=== PATIENT | female | born 1975 | race Caucasian/White ===

== ENCOUNTER 2021-10-15 12:40 | Emergency (ER) | payer MEDICAID, OTHER ==
[~2021-10-15] VITALS: Ht 175.3 cm; Wt 105.8 kg
[~2021-10-15 12:40] MED LIST: FLOOS OT; PSEU120T55 PO
[2021-10-15 12:44] VITALS: BP 122/74
[2021-10-15] MEDS ORDERED: CYCL-1 PO (14:13)
[2021-10-15] MEDS ORDERED: IBUP-1986 PO (14:13)
[2021-10-15] MEDS ORDERED: cyclobenzaprine 10mg tablet PO ONE (14:20)
[2021-10-15] MEDS ORDERED: HYDROcodone/acetaminophen 5mg/325mg tablet PO ONE (14:20)
== END 2021-10-15 14:32 | disposition home or self-care (01) ==
LOC: ER 12:41
DX: M25.512 Pain in left shoulder (principal); M54.6 Pain in thoracic spine; M54.2 Cervicalgia; R07.89 Other chest pain; G43.909 Migraine, unspecified, not intractable, without status migrainosus; Z56.0 Unemployment, unspecified; Z79.2 Long term (current) use of antibiotics; Z79.899 Other long term (current) drug therapy; V89.2XXA Person injured in unspecified motor-vehicle accident, traffic, initial encounter; Y93.89 Activity, other specified; Y92.89 Other specified places as the place of occurrence of the external cause; Y99.8 Other external cause status
CPT/HCPCS: 99283

== ENCOUNTER 2021-10-18 12:21 | Emergency (ER) | payer OTHER ==
[~2021-10-18] VITALS: Ht 175.3 cm; Wt 105.9 kg
[~2021-10-18 12:21] MED LIST changes: +CYCL-1 PO; +IBUP-1986 PO
[2021-10-18 12:37] VITALS: BP 131/71
== END 2021-10-18 15:35 | disposition home or self-care (01) ==
LOC: ER 12:23
DX: S00.83XA Contusion of other part of head, initial encounter (principal); S20.01XA Contusion of right breast, initial encounter; M25.511 Pain in right shoulder; G43.909 Migraine, unspecified, not intractable, without status migrainosus; M54.6 Pain in thoracic spine; Z56.0 Unemployment, unspecified; Z79.2 Long term (current) use of antibiotics; Z79.899 Other long term (current) drug therapy; V89.2XXA Person injured in unspecified motor-vehicle accident, traffic, initial encounter; Y93.89 Activity, other specified; Y92.89 Other specified places as the place of occurrence of the external cause; Y99.8 Other external cause status
CPT/HCPCS: 71046; 99283

== ENCOUNTER 2023-11-23 15:29 | Outpatient (CLI) | payer MEDICAID | END 2023-11-23 23:59 | disposition home or self-care (01) | LOC: MRI 15:29 | PROVIDERS: ATTEND Physician Assistant Surgical | DX: M25.562 Pain in left knee (principal) | CPT/HCPCS: 73721 ==

== ENCOUNTER 2025-02-16 15:47 | Emergency (ER) | payer MEDICAID | END 2025-02-16 16:00 | disposition left against medical advice (07) | LOC: ER 15:47 | DX: R10.9 Unspecified abdominal pain (principal); Z53.21 Procedure and treatment not carried out due to patient leaving prior to being seen by health care provider ==

== ENCOUNTER 2025-02-16 16:43 | Emergency (ER) | payer MEDICAID ==
[~2025-02-16] VITALS: Ht 175.3 cm; Wt 109.5 kg
[2025-02-16 17:58] LABS: MEAN PLATELET VOLUME 6.9 FL (7.4-10.4); RED CELL DISTRIBUTION WIDTH 13.5 % (11.5-14.5)
[2025-02-16 18:04] LABS: LEUKOCYTE ESTERASE ,URINE NEGATIVE (Neg); NITRITES, URINE NEGATIVE (Neg); OCCULT BLOOD,URINE NEGATIVE (Neg)
[2025-02-16 18:06] LABS: UA COLLECTION TYPE CLN CATCH MIDSTREAM
[2025-02-16 18:15] LABS: CREATININE 0.72 MG/DL (0.40-0.90); TOTAL CARBON DIOXIDE 25.7 MMOL/L (24-32); eCRCL 101 ML/MIN; eGFR 87 ML/MIN
--- NOTE | 2025-02-16 18:29 | RADIOLOGY REPORT ---
Technique: Real-time ultrasound images through the pelvis using a transabdominal transducer. For bett er evaluation of the ovaries and endometrial stripe, an endovaginal transducer was used. Indication: ABDOMINAL PAIN Comparison: None Findings: The uterus is not identified consistent with history of hysterectomy. Right ovary measures 4.5 x 2.7 x 3.4 cm. Normal flow on color doppler images. Right ovarian follicle / cyst measuring 1.1 cm. Left ovary measures 3.3 x 2.1 x 1.8 cm. Normal flow on color doppler images. No focal masses are reginaldo ntified. There is no significant free fluid in the pelvis. Impression: Uterus nonvisualized consistent with history of hysterectomy.
--- NOTE | 2025-02-16 19:44 | Physician Documentation ---
History of Present Illness Chief Complaint: Abdominal Pain Stated Complaint: "I AM IN A LOT OF PAIN" Time Seen by MD: 17:26 Primary Medical Doctor: KAMAR MEDINA Patient is seen today with complaints of left lower quadrant abdominal pain that started a couple of days ago was progressively worsened. Patient denies any significant aggravating or relieving factors however she states it does seem to hurt last when she stands up. Patient denies any fever or chills or nausea, vomiting, diarrhea or chest pain or shortness of breath. She states she did have a partial hysterectomy two years ago where they removed her uterus but she remains with both ovaries. She denies any history of diverticulitis or significant ovarian cysts. She has no other concern or complaint at this time. Medication Reconciliation Allergies: Coded Allergies: No Known Allergies (Unverified , 02/16/25) Scheduled Cyclobenzaprine* (Cyclobenzaprine*), 1 TAB PO Q8H Ibuprofen (Ibuprofen), 1 TAB PO Q8H Ofloxacin Otic* (Floxin Otic Drops*), 5 DRP OT QID Pseudoephedrine Hcl (Sudafed 12-Hour), 120 MG PO BID Past Medical History Past Medical History: Migraine Past Surgical History: no surgical history Drug Use: none Lives with: Family Lives In: Home Occupation: unemployed, student Review of Systems Constitutional: Denies: chills, fever, weakness Eyes: Denies: pain, blurred vision ENT: Denies: ear pain, nose pain, throat pain, mouth pain Respiratory: Denies: cough, shortness of breath Cardiovascular: Denies: chest pain, palpitations Gastrointestinal: Denies: abdominal pain, nausea, vomiting Genitourinary: Denies: burning, dysuria Female Genitalia: Denies: vaginal discharge, pelvic pain Neurological: Denies: headache, dizziness Musculoskeletal: Denies: pain, swelling Integumentary: Denies: rash, lesions Allergic/Immunologic: Denies: hives, itching Hematologic/Lymphatic: Denies: no symptoms reported Psychiatric: Denies: depression, anxiety Physical Exam Vital Signs: Temperature: 98.7, Source: Temporal, Heart Rate: 64, Respiratory Rate: 16, BP: 152/91, Pulse Oximetry: 100, Weight: 109.550 Oxygen Flow Rate: 0 Physical Exam General: Awake and Alert, no acute distress. HEENT: Conjunctiva pink, Sclera clear, Mucus Membranes moist. Neck: Supple without masses and tenderness. Resp: Unlabored. Lungs clear to auscultation bilaterally. Heart: Regular Rate and rhythm, normal S1 and S2 without murmur, rub or gallop. Abdomen: Patient on exam has significant tenderness to palpation of the left lower quadrant without rebound and without guarding. Abdomen is soft, no ndistended, normoactive bowel sounds, no masses. Extremities: No cyanosis,clubbing or edema. Skin: Warm and Dry. Progress Results/Orders Results/Orders Orders - DIEGO ALTAMIRANO R PAC Ultrasound Pelvis W/Orwo Dplx (02/16/25 16:51) Toradol Iv (02/16/25 19:40) Saline Lock (02/16/25 19:40) Ct Abdomen Pelvis (02/16/25 19:40) Completed Orders - DIEGO ALTAMIRANO R PAC Urinalysis, Cult If Indicated (02/16/25 16:51) Cbc/Diff (02/16/25 16:51) Lipase (02/16/25 16:51) CMP (02/16/25 16:51) Ultrasound Pelvis W/Orwo Dplx (02/16/25 16:51) Procalcitonin (02/16/25 16:51) Lactic,2hr (02/16/25 16:51) Vital Signs 02/16/25 02/16/25 16:47 19:28 Temp 97.9 98.7 Pulse 75 64 Resp 18 16 B/P (MAP) 162/94 152/91 (111) Pulse Ox 98 100 O2 Flow Rate 0 0 Laboratory Tests Test 02/16/25 16:51 02/16/25 17:02 White Blood Count 7.9 Red Blood Count 4.65 Hemoglobin 14.3 Hematocrit 41.4 Mean Corpuscular Volume 89.2 Mean Corpuscular Hemoglobin 30.7 Mean Corpuscular Hemoglobin Concent 34.4 Red Cell Distribution Width 13.5 Platelet Count 394 Mean Platelet Volume 6.9 L Neutrophils (%) (Auto) 77.8 H Lymphocytes (%) (Auto) 16.7 L Monocytes (%) (Auto) 4.5 Eosinophils (%) (Auto) 0.5 Basophils (%) (Auto) 0.5 Neutrophils # (Auto) 6.2 Lymphocytes # (Auto) 1.3 Monocytes # (Auto) 0.4 Eosinophils # (Auto) 0.0 Basophils # (Auto) 0.0 CBC Comment Sodium Level 139 Potassium Level 3.8 Chloride Level 100 Carbon Dioxide Level 25.7 Anion Gap 13 Blood Urea Nitrogen 11 Creatinine 0.72 Estimated GFR/1.73 m2 87 BUN/Creatinine Ratio 15.3 Glucose Level 115 H Lactic Acid Level 0.9 Calcium Level 9.2 Total Bilirubin 0.6 Aspartate Amino Transf (AST/SGOT) 17 Alanine Aminotransferase (ALT/SGPT) 35 Alkaline Phosphatase 62 Total Protein 8.4 H Albumin 4.2 Globulin 4.2 Albumin/Globulin Ratio 1.0 L Lipase 28 Procalcitonin < 0.05 Chemistry Comments Urine Specimen Description Cln catch midstream Urine Color Yellow Urine Clarity Clear Urine pH 6.0 Urine Specific Warren 1.025 Urine Protein Negative Urine Glucose (UA) Negative Urine Ketones Trace H Urine Occult Blood Negative Urine Nitrite Negative Urine Bilirubin Negative Urine Urobilinogen 0.2 Urine Leukocyte Esterase Negative Urine Culture Indicated Not ind Volume Urine Centrifuged 10 ml Urine Comment EKG/XRAY/CT/US/VASC/MRI CT : Impression CAT SCAN Patient: TANIA HAGAN Medical Record: [id number] [facility] 1975, Age: 49 Sex: Female Location: ER Patient Status: REG ER Service Date/Time: 02/16/251939 Ordering Physician: DIEGO ALTAMIRANO PAC Exam: CT ABDOMEN PELVIS Exam: CT CT ABDOMEN PELVIS W/ IV CONTRAST History: ABD PAIN Comparison Study: None TECHNIQUE: Multidetector CT of the abdomen was performed from lung bases to pubic symphysis. Imaging was performed without IV contrast. Axial, coronal and sagittal multiplanar reformats were obtained from the axial data set by the technologist. Radiation Dose Information: Dose-length product is 1722 mGy*cm FINDINGS: Limited sections of the lung bases demonstrate no focal pulmonary mass. The liver, spleen, pancreas, and both adrenal glands demonstrate no acute findings. Minimal hepatic steatosis. Hepatomegaly to 22 cm. The gallbladder is unremarkable. Small hiatal hernia ; otherwise stomach is unremarkable. The small bowel loops are not dilated. The appendix is normal. No colonic obstruction. Colonic diverticulosis without acute diverticulitis. Minimal colonic wall thickening may reflect colitis. Bilateral kidneys contains multiple small subcentimeter cysts. No hydronephrosis. Urinary bladder wall thickening which may reflect cystitis vs partial nondistention; consider correlation with urinarlysis. No significant lymphadenopathy. Scattered prominent mesenteric lymph nodes with diffuse inflammation. No free air or free fluid. The aorta and IVC demonstrate no acute findings. Visualized osseous structures demonstrate no acute abnormality. IMPRESSION: 1. Minimal colonic wall thickening may reflect colitis. No bowel obstruction. 2. Colonic diverticulosis without acute diverticulitis. 3. Urinary bladder wall thickening which may reflect cystitis vs partial nondistention; consider correlation with urinarlysis. 4. Scattered prominent mesenteric lymph nodes with diffuse inflammation which may reflect panniculitis. Electronically Signed by:BARBI GOMEZ MD Date & Time: 02/16/252132 Dictated by: BARBI GOMEZ MD Dictation date and time: 02/16/252132 Primary Care Provider: NO PRIMARY CARE PROVIDER cc: DIEGO ALTAMIRANO PAC ~ Ultrasound : Impression ULTRASOUND Patient: TANIA HAGAN Medical Record: [id number] [facility] 1975, Age: 49 Sex: Female Location: ER Patient Status: [facility] ER Service Date/Time: 02/16/251650 Ordering Physician: DIEGO ALTAMIRANO PAC Exam: ULTRASOUND PELVIS W/ORWO DPLX Technique: Real-time ultrasound images through the pelvis using a transabdominal transducer. For better evaluation of the ovaries and endometrial stripe, an endovaginal transducer was used. Indication: ABDOMINAL PAIN Comparison: None Findings: The uterus is not identified consistent with history of hysterectomy. Right ovary measures 4.5 x 2.7 x 3.4 cm. Normal flow on color doppler images. Right ovarian follicle / cyst measuring 1.1 cm. Left ovary measures 3.3 x 2.1 x 1.8 cm. Normal flow on color doppler images. No focal masses are identified. There is no significant free fluid in the pelvis. Impression: Uterus nonvisualized consistent with history of hysterectomy. Electronically Signed by:CHAZ VIDALES MD Date & Time: 02/16/251827 Dictated by: CHAZ VIDALES MD Dictation date and time: 02/16/251827 Primary Care Provider: NO PRIMARY CARE PROVIDER cc: DIEGO ALTAMIRANO PAC ~ Medical Decision Making Findings Patient is seen today with complaints of left lower quadrant abdominal pain that started a couple of days ago was progressively worsened. Patient denies any significant aggravating or relieving factors however she states it does seem to hurt last when she stands up. Patient denies any fever or chills or nausea, vomiting, diarrhea or chest pain or shortness of breath. She states she did have a partial hysterectomy two years ago where they removed her uterus but she remains with both ovaries. She denies any history of diverticulitis or significant ovarian cysts. She has no other concern or complaint at this time. Patient did have CT scan of abdomen that showed diverticulosis without sign of diverticulitis and possible colitis. Ultrasound of pelvis was largely unremarkable. Patient's labs were also largely unremarkable without any sign of significant infection markers being elevated. Patient will follow up with primary care in 3-5 days if no better as needed sooner for referral to GI specialist as well as for colonoscopy. Patient will return to ED with any worsening, concerning or changing symptoms. Departure Disposition: 01 HOME / SELF CARE / HOMELESS Impression: Primary Impression: Abdominal pain Qualified Codes: R10.32 - Left lower quadrant pain Additional Impressions: Colitis Diverticulosis of colon without hemorrhage Condition: Stable Discharge Instructions: Abdominal Pain (Nonspecific) Additional Instructions: Patient did have CT scan of abdomen that showed diverticulosis without sign of diverticulitis and possible colitis. Ultrasound of pelvis was largely un remarkable. Patient's labs were also largely unremarkable without any sign of significant infection markers being elevated. Patient will follow up with primary care in 3-5 days if no better as needed sooner for referral to GI specialist as well as for colonoscopy. Patient will return to ED with any worsening, concerning or changing symptoms. Referrals: NO PRIMARY CARE PROVIDER (PCP) Signature Scribe Signature: No scribe Attestation: No scribe DIEGO ALTAMIRANO PAC Feb 16, 2025 19:44
[2025-02-16] MEDS ORDERED: iohexol 300mg/ml 100ml inj. ONE (20:39)
[2025-02-16] MEDS: ketorolac trometh 30MG/ML vial 30 MG/ML VIAL IV ONE (21:03)
--- NOTE | 2025-02-16 21:35 | RADIOLOGY REPORT ---
Exam: CT CT ABDOMEN PELVIS W/ IV CONTRAST History: ABD PAIN Comparison Study: None TECHNIQUE: Multidetector CT of the abdomen was performed from lung bases to pubic symphysis. Imaging was performed without IV contrast. Axial, coronal and sagittal multiplanar reformats were obtained fr om the axial data set by the technologist. Radiation Dose Information: Dose-length product is 1722 mGy*cm FINDINGS: Limited sections of the lung bases demonstrate no focal pulmonary mass. The liver, spleen, pancreas, and both adrenal glands demonstrate no acute findings. Minimal hepatic s teatosis. Hepatomegaly to 22 cm. The gallbladder is unremarkable. Small hiatal hernia ; otherwise stomach is unremarkable. The small bowel loops are not dilated. The appendix is normal. No colonic obstruction. Colonic diverticulosis without acute diverticulitis. Minimal colonic wall thi ckening may reflect colitis. Bilateral kidneys contains multiple small subcentimeter cysts. No hydronephrosis. Urinary bladder wall thickening which may reflect cystitis vs partial nondistention; consider correla tion with urinarlysis. No significant lymphadenopathy. Scattered prominent mesenteric lymph nodes with diffuse inflammation. No free air or free fluid. The aorta and IVC demonstrate no acute findings. Visualized osseous structures demonstrate no acute abnormality. IMPRESSION: 1. Minimal colonic wall thickening may reflect colitis. No bowel obstruction. 2. Colonic diverticulosis without acute diverticulitis. 3. Urinary bladder wall thickening which may reflect cystitis vs partial nondistention; consider kia elation with urinarlysis. 4. Scattered prominent mesenteric lymph nodes with diffuse inflammation which may reflect panniculiti s.
[2025-02-16 23:06] VITALS: TEMP 98.7
[2025-02-16 23:19] VITALS: BP 154/81; PULSE 91; RESP 18; O2SAT 100
== END 2025-02-16 23:19 | disposition home or self-care (01) ==
LOC: ER 16:43
DX: K52.9 Noninfective gastroenteritis and colitis, unspecified (principal); K57.30 Diverticulosis of large intestine without perforation or abscess without bleeding; G43.909 Migraine, unspecified, not intractable, without status migrainosus; Z79.899 Other long term (current) drug therapy; Z56.0 Unemployment, unspecified
CPT/HCPCS: 36415; 74177; 76856; 80053; 81003; 83605; 83690; 84145; 85025; 93976; 96374; 99285; J1885; Q9967